=== PATIENT | female | born 1940 | race Caucasian/White ===

== ENCOUNTER 2020-10-19 00:57 | Emergency (ER) | payer MEDICARE, OTHER ==
[2020-10-19 01:21] LABS: BASOPHIL 0.7 % (0-2); HCT 34.1 % (37.0-47.0); HGB 11.1 g/dl (12.5-16.0); LYMPHOCYTE 37.7 % (15-48); MCH 30.8 pg (25.0-31.0); MCHC 32.6 g/dL (32.0-36.0); MCV 94.7 fL (78.0-100.0); MONOCYTE 10.8 % (0-12); MPV 8.6 fL (6.0-9.5); NEUTROPHIL 44.6 % (41-80); NRBC 0; PLT 152 K/uL (150-400); RDW 13.3 % (11.5-14.0); WBC 4.4 K/uL (4.0-10.5)
[2020-10-19 01:31] LABS: INR 1.04 (0.9-1.2); PROTHROMBIN TIME 12.9 SECONDS (11.4-13.6); PTT 27.1 SECONDS (22.2-34.7)
[2020-10-19 01:33] LABS: D-DIMER 0.99 ug/mLFEU (0.00-0.41)
[2020-10-19 01:33] LABS: BILIRUBIN NEGATIVE (NEGATIVE); BLOOD 3+ Ery/uL (NEGATIVE); CLARITY CLOUDY (CLEAR); COLOR YELLOW (YELLOW); GLUCOSE (U) NORMAL (NORMAL); LEUKOCYTES 3+ Leu/uL (NEGATIVE); NITRITE NEGATIVE (NEGATIVE); PROTEIN 2+ mg/dL (NEGATIVE); UROBILINOGEN 0.2 mg/dL (0.2-1.0); pH 5.5 (5.0-9.0)
[2020-10-19 01:42] LABS: AMORPHOUS URATES CRYSTALS LARGE; BACTERIA 4+; SQUAMOUS EPITHELIAL CELLS RARE; URINARY WBC 20-50
[2020-10-19 01:45] LABS: PRO-BNP 215 pg/mL (<450)
[2020-10-19 01:48] LABS: ALBUMIN 3.3 g/dL (3.4-5.0); BILIRUBIN - TOTAL 0.3 mg/dL (0.2-1.0); CREATININE 1.31 mg/dL (0.51-0.95); FT4 (FREE T4) 1.2 ng/dL (0.76-1.46); GLOBULIN (CALCULATION) 4.1 g/dL; MAGNESIUM 1.9 mg/dL (1.8-2.4); POTASSIUM 3.6 mmol/L (3.5-5.1); TOTAL PROTEIN 7.4 g/dL (6.4-8.2)
[2020-10-19] MEDS ORDERED: MACROBID100 MG PO (04:21)
== END 2020-10-19 04:50 | disposition home or self-care (01) ==
LOC: FER 00:57
PROVIDERS: Emergency Medicine Emergency Medical Services
DX: I47.1 Supraventricular tachycardia (principal); N39.0 Urinary tract infection, site not specified; I10 Essential (primary) hypertension; Z88.2 Allergy status to sulfonamides
CPT/HCPCS: 36415; 71045; 80053; 81001; 83735; 83880; 84439; 84443; 84484; 85025; 85379; 85610; 85730; 87076; 87088; 87186; 93005; J0696

== ENCOUNTER 2020-12-12 21:03 | Day surgery (SDCO) | payer MEDICARE, OTHER ==
[~2020-12-12] VITALS: Ht 160 cm; Wt 111.0 kg
[~2020-12-12 21:03] MED LIST: MACROBID100 MG PO
[2020-12-12 21:46] LABS: BASOPHIL 0.6 % (0-2); EOSINOPHIL 5.8 % (0-7); HCT 37.2 % (37.0-47.0); HGB 11.8 g/dl (12.5-16.0); LYMPHOCYTE 27.9 % (15-48); MCH 30.2 pg (25.0-31.0); MCHC 31.7 g/dL (32.0-36.0); MCV 95.1 fL (78.0-100.0); MPV 8.9 fL (6.0-9.5); NEUTROPHIL 56.5 % (41-80); NRBC 0; PLT 183 K/uL (150-400); RBC 3.91 M/uL (4.20-5.40); RDW 13.6 % (11.5-14.0); WBC 5.1 K/uL (4.0-10.5)
[2020-12-12 21:58] LABS: INR 1.04 (0.9-1.2); PTT 27.1 SECONDS (24.4-34.7)
[2020-12-12 21:59] LABS: D-DIMER 1.01 ug/mLFEU (0.00-0.41)
[2020-12-12 22:11] LABS: ALBUMIN 3.3 g/dL (3.4-5.0); BILIRUBIN - TOTAL 0.3 mg/dL (0.2-1.0); BUN/CREAT RATIO (CALC) 14.4 RATIO; CREATININE 1.6 mg/dL (0.51-0.95); FT4 (FREE T4) 1.1 ng/dL (0.76-1.46); GLOBULIN (CALCULATION) 4.1 g/dL; POTASSIUM 3.7 mmol/L (3.5-5.1); TOTAL PROTEIN 7.4 g/dL (6.4-8.2)
[2020-12-12 22:38] LABS: BILIRUBIN NEGATIVE (NEGATIVE); BLOOD NEGATIVE Ery/uL (NEGATIVE); CLARITY CLEAR (CLEAR); COLOR YELLOW (YELLOW); GLUCOSE (U) NORMAL (NORMAL); LEUKOCYTES NEGATIVE Leu/uL (NEGATIVE); NITRITE NEGATIVE (NEGATIVE); PROTEIN NEGATIVE (NEGATIVE); SPECIFIC GRAVITY 1.015 (1.001-1.030); UROBILINOGEN 0.2 mg/dL (0.2-1.0)
[2020-12-13 06:26] LABS: HCT 33.8 % (37.0-47.0); MCH 30.9 pg (25.0-31.0); MCHC 32.5 g/dL (32.0-36.0); MCV 94.9 fL (78.0-100.0); MPV 8.8 fL (6.0-9.5); RBC 3.56 M/uL (4.20-5.40); RDW 13.6 % (11.5-14.0); WBC 6.6 K/uL (4.0-10.5)
[2020-12-13 06:54] LABS: CREATININE 1.44 mg/dL (0.51-0.95); MAGNESIUM 1.9 mg/dL (1.8-2.4); POTASSIUM 3.8 mmol/L (3.5-5.1)
[2020-12-13 07:07] LABS: CKMB 1.3 ng/mL (0.0-3.6)
[2020-12-13] MEDS ORDERED: TUMS200 MG PO (14:53)
[2020-12-13] MEDS ORDERED: VITAMIN D310 MC3 PO (14:54)
[2020-12-13] MEDS ORDERED: MAG-OXIDE 400M400 MG PO (14:55)
[2020-12-13] MEDS ORDERED: PHYTOMULTI TAB1 EACH PO (14:55)
[2020-12-13] MEDS ORDERED: ASPIRIN81 MG PO (14:57)
[2020-12-13] MEDS ORDERED: FOLIC ACID0.4 MG PO (14:59)
[2020-12-13] MEDS ORDERED: CRANBERRY500 M3 PO (15:00)
[2020-12-13] MEDS ORDERED: COQ-10100 MG PO (15:01)
[2020-12-13] MEDS ORDERED: ZYRTEC10 MG PO (15:01)
[2020-12-13] MEDS ORDERED: BIOTIN0.5 GM PO (15:02)
[2020-12-13] MEDS ORDERED: CULTURELLE1 EACH PO (15:02)
[2020-12-13] MEDS ORDERED: LAMICTAL100 MG PO (15:03)
[2020-12-13] MEDS ORDERED: PRAVACHOL20 MG PO (15:04)
[2020-12-13] MEDS ORDERED: ALLOPURINOL300 MG PO (15:05)
[2020-12-13] MEDS ORDERED: DICLOFENAC SODI75 MG PO (15:05)
[2020-12-13] MEDS ORDERED: TERAZOSIN 1MG (G1 MG PO (15:06)
[2020-12-13] MEDS ORDERED: LASIX20 MG PO (15:06)
[2020-12-13] MEDS ORDERED: AMBIEN10 MG PO (15:06)
[2020-12-13] MEDS ORDERED: PROTONIX 40MG T40 MG PO (15:07)
[2020-12-13] MEDS ORDERED: WIXELA 100-501 EACH INH (15:08)
[2020-12-13] MEDS ORDERED: TOPROL XL 25MG25 MG PO (15:08)
--- NOTE | 2020-12-13 16:56 | NUR ---
12/13/20 Ms. Silver lives alone. She has a rollator, emergency alert system, 3in1, s. chair, and lift chair. A caregiver comes to the home 6 days per week for 8 hours; 4 hours in the a.m. and then returns to the home for 4 additional hours. Ms. Silver reports to be modified I in the home. She is not interested in HH.
[2020-12-14 06:06] LABS: BASOPHIL 0.7 % (0-2); HCT 37.3 % (37.0-47.0); HGB 12.2 g/dl (12.5-16.0); LYMPHOCYTE 39.3 % (15-48); MCH 30.7 pg (25.0-31.0); MCHC 32.7 g/dL (32.0-36.0); MCV 93.7 fL (78.0-100.0); MONOCYTE 8.8 % (0-12); MPV 9.1 fL (6.0-9.5); NEUTROPHIL 44.6 % (41-80); NRBC 0; PLT 195 K/uL (150-400); RBC 3.98 M/uL (4.20-5.40); RDW 13.3 % (11.5-14.0); WBC 5.3 K/uL (4.0-10.5)
[2020-12-14 06:08] LABS: BUN/CREAT RATIO (CALC) 12.4 RATIO; CREATININE 1.21 mg/dL (0.51-0.95); POTASSIUM 3.8 mmol/L (3.5-5.1)
== END 2020-12-14 15:11 | disposition home or self-care (01) ==
LOC: FER 21:03 → FTCU 12-13 01:37
PROVIDERS: Emergency Medicine Emergency Medical Services; Nurse Practitioner; ADMIT Internal Medicine
DX: I47.1 Supraventricular tachycardia (principal); I10 Essential (primary) hypertension; R79.1 Abnormal coagulation profile; K44.9 Diaphragmatic hernia without obstruction or gangrene; G47.33 Obstructive sleep apnea (adult) (pediatric); J42 Unspecified chronic bronchitis; M79.89 Other specified soft tissue disorders; R60.9 Edema, unspecified; Z86.718 Personal history of other venous thrombosis and embolism; Z88.1 Allergy status to other antibiotic agents; Z88.5 Allergy status to narcotic agent; Z20.822 Contact with and (suspected) exposure to COVID-19; Z96.653 Presence of artificial knee joint, bilateral
CPT/HCPCS: 36415; 71045; 78582; 80048; 80053; 81003; 82553; 83735; 83880; 84439; 84443; 84484; 85025; 85379; 85610; 85730; 93005; 93970; 94010; 94760; A9540; G0378; J1650; U0002

== ENCOUNTER 2022-02-07 11:06 | Inpatient (IN) | payer MEDICARE, OTHER ==
[~2022-02-07] VITALS: Ht 162.6 cm; Wt 108.9 kg
[~2022-02-07 11:06] MED LIST changes: +ALLOPURINOL300 MG PO; +AMBIEN10 MG PO; +ASPIRIN81 MG PO; +BIOTIN0.5 GM PO; +COQ-10100 MG PO; +CRANBERRY500 M3 PO; +CULTURELLE1 EACH PO; +DICLOFENAC SODI75 MG PO; +FOLIC ACID0.4 MG PO; +LAMICTAL100 MG PO; +LASIX20 MG PO; +MAG-OXIDE 400M400 MG PO; +PHYTOMULTI TAB1 EACH PO; +PRAVACHOL20 MG PO; +PROTONIX 40MG T40 MG PO; +TERAZOSIN 1MG (G1 MG PO; +TOPROL XL 25MG25 MG PO; +TUMS200 MG PO; +VITAMIN D310 MC3 PO; +WIXELA 100-501 EACH INH; +ZYRTEC10 MG PO
[2022-02-07] MEDS ORDERED: VITAMIN D3125 MC1 PO (15:55)
[2022-02-07] MEDS ORDERED: ASPIRIN EC81 MG PO (15:57)
[2022-02-07] MEDS ORDERED: MAG-OXIDE 400M400 MG PO (15:57)
[2022-02-07] MEDS ORDERED: FOLIC ACID1 MG PO (15:58)
[2022-02-07] MEDS ORDERED: ZYRTEC10 MG PO (15:59)
[2022-02-07] MEDS ORDERED: ALLOPURINOL100 MG PO (16:00)
[2022-02-07] MEDS ORDERED: LAMICTAL100 MG PO (16:00)
[2022-02-07] MEDS ORDERED: LASIX20 MG PO (16:01)
[2022-02-07] MEDS ORDERED: AMBIEN CR12.5 MG PO (16:21)
[2022-02-07] MEDS ORDERED: HYTRIN1 MG PO (16:22)
[2022-02-07] MEDS ORDERED: TOPROL XL 25MG25 MG PO (16:23)
[2022-02-07] MEDS ORDERED: WIXELA 100-501 EACH INH (16:25)
[2022-02-07] MEDS ORDERED: ROCALTROL 0.0.25 MCG PO (16:26)
[2022-02-07] MEDS ORDERED: XANAX0.25 MG PO (16:27)
[2022-02-08 08:00] LABS: CREATININE 1.07 mg/dL (0.51-0.95); POTASSIUM 3.8 mmol/L (3.5-5.1)
[2022-02-09 06:40] LABS: BILIRUBIN NEGATIVE (NEGATIVE); BLOOD NEGATIVE Ery/uL (NEGATIVE); CLARITY CLEAR (CLEAR); COLOR YELLOW (YELLOW); GLUCOSE (U) NORMAL (NORMAL); LEUKOCYTES NEGATIVE Leu/uL (NEGATIVE); NITRITE NEGATIVE (NEGATIVE); PROTEIN NEGATIVE (NEGATIVE); SPECIFIC GRAVITY <=1.005 (1.001-1.030); UROBILINOGEN 0.2 mg/dL (0.2-1.0); pH 6.5 (5.0-9.0)
[2022-02-12] MEDS ORDERED: NORCO 5-325 TA1 EACH PO (11:27)
== END 2022-02-13 14:17 | disposition home health service (06) | DRG 948 ==
LOC: FSNU 11:06
PROVIDERS: Family Medicine; Nurse Practitioner Acute Care; ADMIT Internal Medicine
DX: R53.81 Other malaise (principal); N30.01 Acute cystitis with hematuria; Z68.41 Body mass index [BMI] 40.0-44.9, adult; I12.9 Hypertensive chronic kidney disease with stage 1 through stage 4 chronic kidney disease, or unspecified chronic kidney disease; N18.30 Chronic kidney disease, stage 3 unspecified; Z20.822 Contact with and (suspected) exposure to COVID-19; D63.1 Anemia in chronic kidney disease; E66.01 Morbid (severe) obesity due to excess calories; F41.9 Anxiety disorder, unspecified; G47.00 Insomnia, unspecified; I95.9 Hypotension, unspecified; G47.33 Obstructive sleep apnea (adult) (pediatric); E78.5 Hyperlipidemia, unspecified; Z79.899 Other long term (current) drug therapy; Z93.3 Colostomy status; Z93.6 Other artificial openings of urinary tract status; Z88.2 Allergy status to sulfonamides; Z79.82 Long term (current) use of aspirin; Z90.49 Acquired absence of other specified parts of digestive tract; Z90.710 Acquired absence of both cervix and uterus; Z83.3 Family history of diabetes mellitus; Z82.49 Family history of ischemic heart disease and other diseases of the circulatory system
CPT/HCPCS: 36415; 80048; 81003; 97110; 97162; 97166; 97530; 97530-GP; 97535; U0002